=== PATIENT | male | born 1955 | race Asian ===

== ENCOUNTER 2018-12-23 11:20 | Day surgery (SDC) | payer OTHER ==
[2018-12-23] MEDS ORDERED: PROPOFOL 200 MG INJ (12:20)
[2018-12-23] MEDS ORDERED: LIDOCAINE 2% (SDV) 5 ML INJ (12:22)
[2018-12-23] MEDS ORDERED: PROPOFOL 40 ML (12:22)
[2018-12-23] MEDS ORDERED: FENTAnyl 50 MCG/ML VIAL IV (13:30)
[2018-12-23] MEDS ORDERED: EPHEDrine 25 MG/5 ML SYG IV (13:30)
[2018-12-23] MEDS ORDERED: LABETALOL HCL 20MG INJ IV (13:30)
[2018-12-23] MEDS ORDERED: ONDANSETRON 4 MG INJ IV (13:30)
== END 2018-12-23 16:23 | disposition home or self-care (01) ==
LOC: GIL 11:20
DX: Z12.11 Encounter for screening for malignant neoplasm of colon (principal); D12.6 Benign neoplasm of colon, unspecified; K64.8 Other hemorrhoids; I10 Essential (primary) hypertension; E03.9 Hypothyroidism, unspecified; E11.9 Type 2 diabetes mellitus without complications
CPT/HCPCS: 45380; 82962; 88305